=== PATIENT | female | born 1965 | race Caucasian/White ===

== ENCOUNTER 2023-01-26 10:30 | Inpatient (IN) | payer OTHER ==
[2023-02-02] MEDS ORDERED: MIDAZOLAM HCL 2 MG/2 ML SINGLE DOSE VIAL ONE ×6 (13:21→22:26)
[2023-02-02] MEDS ORDERED: DEXMEDETOMIDINE HCL 200 MCG/2 ML IVPB ONE (13:21)
[2023-02-02] MEDS ORDERED: FENTANYL CITRATE/PF 50 MCG/ML VIAL ONE (13:21)
[2023-02-02] MEDS ORDERED: BUPIVACAINE HCL/PF 2.5 MG/ML - 30 ML VIAL IJ ONE (13:22)
[2023-02-02] MEDS ORDERED: BUPIVACAINE HCL/PF 0.5% (5MG/ML) 10 ML VIAL ONE (13:22)
[2023-02-02] MEDS ORDERED: SODIUM CHLORIDE 0.9% P/F 10 ML VIAL IJ ONE (14:21)
[2023-02-02] MEDS ORDERED: PROPOFOL 20 ML ONE ×2 (14:32→14:59)
[2023-02-02] MEDS ORDERED: SUCCINYLCHOLINE CHLORIDE 200 MG/10 ML SYRINGE ONE (14:33)
[2023-02-02] MEDS ORDERED: PROPOFOL 40 ML ONE (15:00)
[2023-02-02] MEDS ORDERED: VANCOMYCIN 1,000 MG VIAL (RESTRICTED TO ID ONLY) ONE (15:22)
[2023-02-02] MEDS ORDERED: ONDANSETRON 4 MG/2 ML VIAL ONE (15:22)
[2023-02-02] MEDS ORDERED: ceFAZolin SODIUM 1 GM VIAL ONE (15:22)
[2023-02-02] MEDS ORDERED: TRANEXAMIC ACID 1000 MG/10 ML VIAL ONE (15:22)
[2023-02-02] MEDS ORDERED: GLYCOPYRROLATE 0.2 MG/1 ML VIAL ONE (15:22)
[2023-02-02] MEDS ORDERED: METOCLOPRAMIDE HCL INJECTION 10 MG/2 ML VIAL ONE (15:22)
[2023-02-02] MEDS ORDERED: oxyCODONE HCL 5 MG TABLET PO PRN ×2 (15:35)
[2023-02-02] MEDS ORDERED: ACETAMINOPHEN 1000 MG/100 ML BAG IVPB ONE (15:35)
[2023-02-02] MEDS ORDERED: ONDANSETRON 4 MG/2 ML VIAL IVPUSH PRN (15:35)
[2023-02-02] MEDS ORDERED: VASOPRESSIN 20 UNITS/ML VIAL IV ONE (16:54)
[2023-02-02] MEDS ORDERED: ETOMIDATE 20 MG/10 ML VIAL IVPUSH ONE (17:27)
[2023-02-02] MEDS ORDERED: ROCURONIUM BROMIDE 50 MG/5 ML SYRINGE ONE ×7 (17:33→23:15)
[2023-02-02 18:07] LABS: HEMATOCRIT 29.5 % (32.4-45.2); HEMOGLOBIN 9.6 G/dL (10.7-15.3); MCHC 32.4 g/dl (32.0-36.0); MEAN CELL VOLUME 92.5 fl (80-96); MEAN PLT VOLUME 7.9 fl (7.5-11.1); PLATELET COUNT 219.3 10^3/uL (134-434); RBC 3.19 10^6/uL (3.60-5.2); WHITE BLOOD COUNT 12.2 10^3/uL (4.0-10.8)
[2023-02-02] MEDS ORDERED: PHENYLEPHRINE HCL 10 MG/1 ML SINGLE DOSE VIAL ONE ×3 (18:23→18:26)
[2023-02-02] MEDS ORDERED: NOREPINEPHRINE BITARTRATE 4 MG/4 ML ML IV ONE (18:38)
[2023-02-02] MEDS ORDERED: CALCIUM CHLORIDE 1 GM/10 ML *DISP.SYRIN ONE ×2 (18:57→19:41)
[2023-02-02] MEDS ORDERED: ENOXAPARIN NA (PORCINE) 40 MG/0.4 ML DISP.SYRIN SQ SCH (19:45)
[2023-02-02] MEDS ORDERED: THROMBIN (BOVINE) 5,000 UNIT VIAL TP ONE (19:45)
[2023-02-02 20:03] LABS: ARTERIAL BLOOD GAS PO2 87.1 mmHg (80-100)
[2023-02-02 20:10] LABS: ARTERIAL BLOOD GAS pH < 6.717 (7.350-7.450)
[2023-02-02 20:29] LABS: HEMATOCRIT 34.7 % (32.4-45.2); HEMOGLOBIN 11.6 G/dL (10.7-15.3); INR 1.54 (0.83-1.09); MCH 30.8 pg (25.7-33.7); MCHC 33.3 g/dl (32.0-36.0); MEAN CELL VOLUME 92.4 fl (80-96); MEAN PLT VOLUME 8.5 fl (7.5-11.1); PROTHROMBIN TIME (PATIENT) 17.8 SEC (9.7-13.0); RBC 3.76 10^6/uL (3.60-5.2); WHITE BLOOD COUNT 16.2 10^3/uL (4.0-10.8)
[2023-02-02 20:40] LABS: ALBUMIN 1.7 g/dl (3.4-5.0); ALK PHOS 55 U/L (45-117); ANION GAP 3 MMOL/L (8-16); BILIRUBIN,TOTAL 0.4 mg/dl (0.2-1); BLOOD UREA NITROGEN 15.5 mg/dl (7-18); CALCIUM 16.2 mg/dl (8.5-10.1); CHLORIDE 113 mmol/L (98-107); CO2 19 mmol/L (21-32); CREATININE 0.8 mg/dl (0.6-1.3); GLUCOSE,RANDOM 225 mg/dl (74-106); SGOT/AST 37.9 U/L (15-37); SGPT/ALT 36.3 U/L (7-52); SODIUM 135 mmol/L (136-145); TOT PROT 2.7 g/dl (6.4-8.2)
[2023-02-02] MEDS ORDERED: ACETAMINOPHEN 500 MG TABLET (FP) PO SCH (22:00)
[2023-02-02] MEDS ORDERED: ENOXAPARIN NA (PORCINE) 30 MG/0.3 ML DISP.SYRIN SQ SCH (22:00)
[2023-02-02 22:04] LABS: ARTERIAL BLD GAS O2 SATURATION 99.9 % (95-98); ARTERIAL BLOOD GAS BASE EXCESS 0.3 mmol/L (-2-2); ARTERIAL BLOOD GAS PO2 482.4 mmHg (80-100); ARTERIAL BLOOD GAS pH 7.453 (7.350-7.450)
[2023-02-02 22:19] LABS: HEMATOCRIT 24.3 % (32.4-45.2); HEMOGLOBIN 8.2 G/dL (10.7-15.3); INR 1.29 (0.83-1.09); MCH 30.8 pg (25.7-33.7); MCHC 33.9 g/dl (32.0-36.0); MEAN PLT VOLUME 7.6 fl (7.5-11.1); PLATELET COUNT 149.9 10^3/uL (134-434); PROTHROMBIN TIME (PATIENT) 14.9 SEC (9.7-13.0); RBC 2.67 10^6/uL (3.60-5.2); RDW 14.3 % (11.6-15.6); WHITE BLOOD COUNT 10.9 10^3/uL (4.0-10.8)
[2023-02-02 22:22] LABS: ACTIVATED PTT 30.6 SECONDS (25.2-36.5)
[2023-02-02 22:31] LABS: ALBUMIN 2.7 g/dl (3.4-5.0); BILIRUBIN,TOTAL 0.9 mg/dl (0.2-1); BLOOD UREA NITROGEN 15.3 mg/dl (7-18); CALCIUM 10.3 mg/dl (8.5-10.1); CREATININE 0.8 mg/dl (0.6-1.3); POTASSIUM 4.1 mmol/L (3.5-5.1); SGOT/AST 41.5 U/L (15-37); SGPT/ALT 35.8 U/L (7-52); TOT PROT 3.9 g/dl (6.4-8.2)
[2023-02-03] MEDS ORDERED: FENTANYL CITRATE/PF 50 MCG/ML VIAL ONE (00:09)
[2023-02-03] MEDS ORDERED: ROCURONIUM BROMIDE 50 MG/5 ML SYRINGE ONE ×4 (00:17→13:07)
[2023-02-03] MEDS ORDERED: MAG HYDROX/AL HYDROX/SIMETH 30 ML UNIT-DOSE CUP PO PRN ×2 (00:30→02:21)
[2023-02-03] MEDS ORDERED: LACTATED RINGERS SOLUTION 1,000 ML IV SCH ×2 (00:30→02:21)
[2023-02-03] MEDS ORDERED: MAGNESIUM HYDROX 2400MG/30ML ORAL SUSPENSION 30 ML CUP PO PRN ×2 (00:30→02:21)
[2023-02-03] MEDS ORDERED: MUPIROCIN 2% TOPICAL OINTMENT FOR DECOLONIZATION NS SCH ×2 (00:30→10:00)
[2023-02-03] MEDS ORDERED: ONDANSETRON 4 MG/2 ML VIAL IVPUSH PRN ×2 (00:30→02:21)
[2023-02-03 01:37] LABS: ARTERIAL BLD GAS O2 SATURATION 99.3 % (95-98); ARTERIAL BLOOD GAS BASE EXCESS 1.2 mmol/L (-2-2); ARTERIAL BLOOD GAS PO2 175.8 mmHg (80-100); ARTERIAL BLOOD GAS pH 7.505 (7.350-7.450)
[2023-02-03 01:39] LABS: VENT MODE A/C; VENT RATE 16
[2023-02-03] MEDS: FENTANYL NS IVPB 500 MCG/100 ML BAG IVPB SCH ×2 (02:10→07:30)
[2023-02-03] MEDS ORDERED: oxyCODONE HCL 5 MG TABLET PO PRN ×2 (02:21)
[2023-02-03] MEDS ORDERED: ACETAMINOPHEN 1000 MG/100 ML BAG IVPB ONE (02:21)
[2023-02-03] MEDS: PROPOFOL 1,000,000 MCG/100 ML VIAL IVPB SCH ×5 (02:35→22:22)
[2023-02-03 02:37] LABS: POTASSIUM 4.8 mmol/L (3.5-5.1)
[2023-02-03 02:39] LABS: BLOOD UREA NITROGEN 15.6 mg/dL (7-18); CALCIUM 9.4 mg/dL (8.5-10.1)
[2023-02-03 02:40] LABS: ALBUMIN 2.8 g/dl (3.4-5.0); MAGNESIUM 1.7 mg/dL (1.8-2.4)
[2023-02-03 02:43] LABS: CREATININE 1.1 mg/dL (0.55-1.3); PHOSPHOROUS 5.4 mg/dL (2.5-4.9)
[2023-02-03 02:44] LABS: LACTIC ACID 3.8 mmol/L (0.4-2.0); TOT PROT 5.2 g/dl (6.4-8.2)
[2023-02-03 02:46] LABS: BILIRUBIN,TOTAL 2.2 mg/dL (0.2-1)
[2023-02-03] MEDS ORDERED: MAGNESIUM 1GM/D5W - 1 GM/100 ML IVPB IVPB ONE (02:51)
[2023-02-03 02:53] LABS: BASO % 0.3 % (0-2.0); EOS % 0.2 % (0-4.5); HEMATOCRIT 22.2 % (32.4-45.2); HEMOGLOBIN 7.8 GM/dL (10.7-15.3); LYMPH % 19.2 % (8-40); MCH 30.7 pg (25.7-33.7); MEAN CELL VOLUME 87.7 fl (80-96); MEAN PLT VOLUME 7.5 fl (7.5-11.1); MONO % 5.4 % (3.8-10.2); NEUT % 74.9 % (42.8-82.8); PLATELET COUNT 106 10^3/uL (134-434); RBC 2.54 M/mm3 (3.60-5.2); RDW 13.8 % (11.6-15.6); WHITE BLOOD COUNT 9.4 K/mm3 (4.0-10.0)
[2023-02-03] MEDS: CEFAZOLIN SODIUM 2 GM in DEXTROSE 5%-WATER 100 ML IVPB SCH ×4 (03:27→21:03)
[2023-02-03] MEDS: ACETAMINOPHEN 500 MG TABLET (FP) PO SCH ×4 (03:28→21:07)
[2023-02-03] MEDS ORDERED: CEFAZOLIN SODIUM 2 GM in DEXTROSE 5%-WATER 100 ML IVPB SCH (04:00)
[2023-02-03 07:40] LABS: BASO % 0.3 % (0-2.0); EOS % 0.3 % (0-4.5); HEMOGLOBIN 7.5 GM/dL (10.7-15.3); LYMPH % 20.3 % (8-40); MCHC 33.9 g/dl (32.0-36.0); MEAN CELL VOLUME 88.4 fl (80-96); MEAN PLT VOLUME 8.9 fl (7.5-11.1); MONO % 6.6 % (3.8-10.2); NEUT % 72.5 % (42.8-82.8); PLATELET COUNT 107 10^3/uL (134-434); RBC 2.49 M/mm3 (3.60-5.2); RDW 13.8 % (11.6-15.6); WHITE BLOOD COUNT 11.1 K/mm3 (4.0-10.0)
[2023-02-03 07:46] LABS: ACTIVATED PTT 29.1 SECONDS (25.2-36.5)
[2023-02-03 07:56] LABS: POTASSIUM 4.3 mmol/L (3.5-5.1)
[2023-02-03 07:58] LABS: CALCIUM 9.4 mg/dL (8.5-10.1)
[2023-02-03 07:59] LABS: ALBUMIN 2.8 g/dl (3.4-5.0); BLOOD UREA NITROGEN 17.5 mg/dL (7-18)
[2023-02-03 08:02] LABS: CREATININE 1.4 mg/dL (0.55-1.3)
[2023-02-03 08:04] LABS: BILIRUBIN,TOTAL 2.6 mg/dL (0.2-1); TOT PROT 5.2 g/dl (6.4-8.2)
[2023-02-03 08:21] LABS: INR 1.2 (0.83-1.09); PROTHROMBIN TIME (PATIENT) 13.9 SEC (9.7-13.0)
[2023-02-03] MEDS ORDERED: LIDOCAINE HCL 1%, 10 MG/ML (10ML VIAL) MDV ONE (08:39)
[2023-02-03] MEDS ORDERED: HEPARIN NA (PORCINE) 5,000 UNITS/ML 1ML VIAL ONE ×3 (08:39→13:36)
[2023-02-03] MEDS: SENNOSIDES/DOCUSATE COMBO (SENNA PLUS) TABLET (UD) PO SCH ×2 (09:29→21:07)
[2023-02-03] MEDS: PANTOPRAZOLE SODIUM 40 MG VIAL IVPUSH SCH (09:29)
[2023-02-03] MEDS: MUPIROCIN 2% TOPICAL OINTMENT FOR DECOLONIZATION NS SCH ×2 (09:29→21:03)
[2023-02-03] MEDS: MYCOPHENOLATE MOFETIL 500 MG TABLET PO SCH ×2 (09:29→21:06)
[2023-02-03] MEDS ORDERED: ROCURONIUM BROMIDE 50 MG/5 ML VIAL IV ONE (09:30)
[2023-02-03] MEDS ORDERED: HYDROmorphone HCl 2 MG/ML VIAL ONE ×2 (09:48→10:52)
[2023-02-03] MEDS ORDERED: MIDAZOLAM HCL 2 MG/2 ML SINGLE DOSE VIAL ONE ×2 (09:59→11:52)
[2023-02-03] MEDS ORDERED: SENNOSIDES/DOCUSATE COMBO (SENNA PLUS) TABLET (UD) PO SCH (10:00)
[2023-02-03] MEDS ORDERED: MYCOPHENOLATE MOFETIL 500 MG TABLET PO SCH (10:00)
[2023-02-03] MEDS ORDERED: PANTOPRAZOLE 40 MG TABLET PO SCH (10:00)
[2023-02-03] MEDS ORDERED: ENOXAPARIN NA (PORCINE) 30 MG/0.3 ML DISP.SYRIN SQ SCH ×2 (10:00)
[2023-02-03] MEDS ORDERED: EZETIMIBE 10 MG TABLET (FP) PO SCH ×2 (10:00)
[2023-02-03] MEDS ORDERED: DEXAMETHASONE SOD PHOSPHATE 4 MG/1 ML VIAL ONE (11:50)
[2023-02-03] MEDS ORDERED: ESMOLOL HCL 100,000 MCG/10 ML VIAL ONE (13:24)
[2023-02-03] MEDS ORDERED: POVIDONE-IODINE OINTMENT 10% - 28.4 GM TUBE TP ONE (13:30)
[2023-02-03] MEDS ORDERED: POVIDONE-IODINE OINTMENT 10% - 28.4 GM TUBE ONE (14:09)
[2023-02-03] MEDS ORDERED: HEPARIN NA (PORCINE) 5,000 UNITS/ML 1ML VIAL IVPUSH PRN ×2 (14:12)
[2023-02-03] MEDS ORDERED: HEPARIN - 25,000 UNIT in SODIUM CHLORIDE 495 ML IV SCH (14:15)
[2023-02-03] MEDS ORDERED: VASOPRESSIN 20 UNITS/ML VIAL IV ONE (15:47)
[2023-02-03] MEDS ORDERED: CEFAZOLIN SODIUM 2 GM VIAL ONE (15:50)
[2023-02-03] MEDS ORDERED: NOREPINEPHRINE BITARTRATE 4 MG/4 ML ML IV ONE (15:51)
[2023-02-03 16:38] LABS: HEMOGLOBIN 7.3 GM/dL (10.7-15.3); MCHC 34.7 g/dl (32.0-36.0); MEAN CELL VOLUME 86.5 fl (80-96); MEAN PLT VOLUME 8.7 fl (7.5-11.1); PLATELET COUNT 55 10^3/uL (134-434); RBC 2.43 M/mm3 (3.60-5.2); WHITE BLOOD COUNT 10.6 K/mm3 (4.0-10.0)
[2023-02-03] MEDS ORDERED: NOREPINEPHRINE 0.9 % NACL 8 MG/250 ML BAG IVPB SCH (17:30)
[2023-02-03] MEDS ORDERED: VASOPRESSIN 40 UNITS/100 ML BAG IV SCH (17:30)
[2023-02-03 17:49] LABS: ALBUMIN 1.2 g/dl (3.4-5.0); ALK PHOS 36 U/L (45-117); ANION GAP 6 MMOL/L (8-16); BILIRUBIN,TOTAL 2.6 mg/dL (0.2-1); BLOOD UREA NITROGEN 14.8 mg/dL (7-18); CHLORIDE 120 mmol/L (98-107); CO2 19 mmol/L (21-32); CREATININE 1.1 mg/dL (0.55-1.3); GLUCOSE,RANDOM 152 mg/dL (74-106); POTASSIUM 5.7 mmol/L (3.5-5.1); SGOT/AST 154 U/L (15-37); SGPT/ALT 51 U/L (13-61); SODIUM 146 mmol/L (136-145); TOT PROT 2.4 g/dl (6.4-8.2)
[2023-02-03] MEDS ORDERED: CALCIUM GLUCONATE 10% - 1,000 MG/10 ML VIAL IVPB ONE (19:43)
[2023-02-03 20:28] LABS: ARTERIAL BLD GAS O2 SATURATION 99.4 % (95-98); ARTERIAL BLOOD GAS BASE EXCESS -9.6 mmol/L (-2-2); ARTERIAL BLOOD GAS PO2 202.2 mmHg (80-100); ARTERIAL BLOOD GAS pH 7.393 (7.350-7.450)
[2023-02-03] MEDS: ROSUVASTATIN CA 20 MG TABLET PO SCH (21:07)
[2023-02-03] MEDS: CHLORHEXIDINE GLUCONATE 4% CLEANSER FOR DECOLONIZATION TP SCH (21:07)
[2023-02-03] MEDS: GABAPENTIN 300 MG CAPSULE PO SCH (21:07)
[2023-02-03 21:52] LABS: HEMOGLOBIN 12.1 GM/dL (10.7-15.3); MCH 29.9 pg (25.7-33.7); MCHC 34.4 g/dl (32.0-36.0); MEAN CELL VOLUME 86.7 fl (80-96); MEAN PLT VOLUME 8.5 fl (7.5-11.1); PLATELET COUNT 113 10^3/uL (134-434); RBC 4.04 M/mm3 (3.60-5.2); RDW 14.9 % (11.6-15.6); WHITE BLOOD COUNT 17.9 K/mm3 (4.0-10.0)
[2023-02-03] MEDS ORDERED: GABAPENTIN 300 MG CAPSULE PO SCH (22:00)
[2023-02-03] MEDS ORDERED: CHLORHEXIDINE GLUCONATE 4% CLEANSER FOR DECOLONIZATION TP SCH ×2 (22:00)
[2023-02-03] MEDS ORDERED: ROSUVASTATIN CA 20 MG TABLET PO SCH (22:00)
[2023-02-03 22:04] LABS: CHLORIDE 114 mmol/L (98-107); POTASSIUM 4.6 mmol/L (3.5-5.1); SODIUM 143 mmol/L (136-145)
[2023-02-03 22:07] LABS: ANION GAP 8 MMOL/L (8-16); BLOOD UREA NITROGEN 14.9 mg/dL (7-18); CO2 20 mmol/L (21-32); GLUCOSE,RANDOM 218 mg/dL (74-106); MAGNESIUM 1.9 mg/dL (1.8-2.4)
[2023-02-03 22:10] LABS: CREATININE 1.2 mg/dL (0.55-1.3); PHOSPHOROUS 4.7 mg/dL (2.5-4.9); SGOT/AST 461 U/L (15-37); SGPT/ALT 129 U/L (13-61)
[2023-02-03 22:11] LABS: TOT PROT 3.8 g/dl (6.4-8.2)
[2023-02-03 22:12] LABS: BILIRUBIN,TOTAL 2.9 mg/dL (0.2-1)
[2023-02-03 22:13] LABS: ALBUMIN 1.9 g/dl (3.4-5.0); ALK PHOS 55 U/L (45-117); CALCIUM 6.5 mg/dL (8.5-10.1)
[2023-02-03] MEDS ORDERED: CALCIUM GLUCONATE 10% - 1,000 MG/10 ML VIAL IVPUSH ONE (22:18)
[2023-02-03 22:39] LABS: ANISOCYTOSIS 1+; MACROCYTOSIS 0
[2023-02-04] MEDS: CEFAZOLIN SODIUM 2 GM in DEXTROSE 5%-WATER 100 ML IVPB SCH ×4 (03:01→21:06)
[2023-02-04] MEDS: ACETAMINOPHEN 500 MG TABLET (FP) PO SCH ×5 (03:02→21:25)
[2023-02-04 07:13] LABS: BASO % 0.2 % (0-2.0); EOS % 0.1 % (0-4.5); HEMATOCRIT 31.9 % (32.4-45.2); HEMOGLOBIN 11.3 GM/dL (10.7-15.3); LYMPH % 13.5 % (8-40); MCH 30.7 pg (25.7-33.7); MCHC 35.4 g/dl (32.0-36.0); MEAN CELL VOLUME 86.8 fl (80-96); MEAN PLT VOLUME 9.8 fl (7.5-11.1); MONO % 6.7 % (3.8-10.2); NEUT % 79.5 % (42.8-82.8); PLATELET COUNT 106 10^3/uL (134-434); RBC 3.68 M/mm3 (3.60-5.2); RDW 14.6 % (11.6-15.6); WHITE BLOOD COUNT 16.3 K/mm3 (4.0-10.0)
[2023-02-04 08:15] LABS: ALBUMIN 1.8 g/dl (3.4-5.0); ALK PHOS 64 U/L (45-117); ANION GAP 9 MMOL/L (8-16); BILIRUBIN,TOTAL 1.8 mg/dL (0.2-1); BLOOD UREA NITROGEN 16.7 mg/dL (7-18); CALCIUM 6.7 mg/dL (8.5-10.1); CHLORIDE 112 mmol/L (98-107); CO2 20 mmol/L (21-32); CREATININE 1.4 mg/dL (0.55-1.3); GLUCOSE,RANDOM 174 mg/dL (74-106); MAGNESIUM 2.1 mg/dL (1.8-2.4); PHOSPHOROUS 4.8 mg/dL (2.5-4.9); POTASSIUM 4.6 mmol/L (3.5-5.1); SGOT/AST 684 U/L (15-37); SGPT/ALT 162 U/L (13-61); SODIUM 141 mmol/L (136-145); TOT PROT 3.8 g/dl (6.4-8.2)
[2023-02-04] MEDS: FENTANYL NS IVPB 500 MCG/100 ML BAG IVPB SCH ×2 (09:05→15:30)
[2023-02-04] MEDS: PROPOFOL 1,000,000 MCG/100 ML VIAL IVPB SCH ×2 (09:05→15:30)
[2023-02-04] MEDS: MUPIROCIN 2% TOPICAL OINTMENT FOR DECOLONIZATION NS SCH ×2 (09:06→21:06)
[2023-02-04] MEDS: ENOXAPARIN NA (PORCINE) 100 MG/1 ML DISP.SYRIN SQ SCH ×3 (09:07→21:26)
[2023-02-04] MEDS: MYCOPHENOLATE MOFETIL 500 MG TABLET PO SCH ×2 (09:07→21:10)
[2023-02-04] MEDS: SENNOSIDES/DOCUSATE COMBO (SENNA PLUS) TABLET (UD) PO SCH ×3 (09:08→21:27)
[2023-02-04] MEDS: PANTOPRAZOLE SODIUM 40 MG VIAL IVPUSH SCH (09:08)
[2023-02-04] MEDS ORDERED: SILVER SULFADIAZINE 1% TOP CREAM 50 GM JAR TP SCH (10:00)
[2023-02-04] MEDS ORDERED: LABETALOL HCL 20 MG/4 ML VIAL IVPUSH ONE (16:57)
[2023-02-04] MEDS ORDERED: LABETALOL HCL 5 MG/1 ML (200MG/40ML VIAL) IVPB ONE (17:02)
[2023-02-04 20:19] LABS: BASO % 0.1 % (0-2.0); EOS % 0.3 % (0-4.5); HEMATOCRIT 31.1 % (32.4-45.2); HEMOGLOBIN 11.2 GM/dL (10.7-15.3); LYMPH % 12.9 % (8-40); MCH 31.2 pg (25.7-33.7); MCHC 36.1 g/dl (32.0-36.0); MEAN CELL VOLUME 86.5 fl (80-96); MEAN PLT VOLUME 9.5 fl (7.5-11.1); MONO % 7.8 % (3.8-10.2); NEUT % 78.9 % (42.8-82.8); PLATELET COUNT 109 10^3/uL (134-434); RDW 15.3 % (11.6-15.6); WHITE BLOOD COUNT 19.4 K/mm3 (4.0-10.0)
[2023-02-04] MEDS: GABAPENTIN 300 MG CAPSULE PO SCH ×2 (21:07→21:27)
[2023-02-04] MEDS: ROSUVASTATIN CA 20 MG TABLET PO SCH ×2 (21:08→21:26)
[2023-02-04] MEDS: CHLORHEXIDINE GLUCONATE 4% CLEANSER FOR DECOLONIZATION TP SCH (21:09)
[2023-02-04] MEDS ORDERED: HYDROmorphone HCl 2 MG/ML VIAL ONE (23:42)
[2023-02-04] MEDS ORDERED: MIDAZOLAM HCL 2 MG/2 ML SINGLE DOSE VIAL ONE (23:42)
[2023-02-05] MEDS: ACETAMINOPHEN 500 MG TABLET (FP) PO SCH ×4 (05:19→15:49)
[2023-02-05 07:18] LABS: HEMATOCRIT 25.7 % (32.4-45.2); HEMOGLOBIN 9.3 GM/dL (10.7-15.3); MCH 32.4 pg (25.7-33.7); MCHC 36.2 g/dl (32.0-36.0); MEAN CELL VOLUME 89.6 fl (80-96); MEAN PLT VOLUME 10.3 fl (7.5-11.1); PLATELET COUNT 124 10^3/uL (134-434); RBC 2.87 M/mm3 (3.60-5.2); RDW 15.2 % (11.6-15.6); WHITE BLOOD COUNT 21.7 K/mm3 (4.0-10.0)
[2023-02-05 07:35] LABS: CHLORIDE 109 mmol/L (98-107); SODIUM 138 mmol/L (136-145)
[2023-02-05 07:37] LABS: ALBUMIN 1.6 g/dl (3.4-5.0); CO2 19 mmol/L (21-32); GLUCOSE,RANDOM 160 mg/dL (74-106); MAGNESIUM 2.4 mg/dL (1.8-2.4)
[2023-02-05 07:41] LABS: CREATININE 2.9 mg/dL (0.55-1.3)
[2023-02-05 07:43] LABS: BILIRUBIN,TOTAL 2.5 mg/dL (0.2-1)
[2023-02-05 07:44] LABS: ALK PHOS 93 U/L (45-117)
[2023-02-05 07:45] LABS: ANION GAP 10 MMOL/L (8-16); BLOOD UREA NITROGEN 29.8 mg/dL (7-18); CALCIUM 5.8 mg/dL (8.5-10.1); POTASSIUM 6.5 mmol/L (3.5-5.1); SGOT/AST 854 U/L (15-37); TOT PROT 3.9 g/dl (6.4-8.2)
[2023-02-05] MEDS: FENTANYL NS IVPB 500 MCG/100 ML BAG IVPB SCH ×2 (08:00→10:05)
[2023-02-05 08:02] LABS: PHOSPHOROUS 9.1 mg/dL (2.5-4.9); SGPT/ALT 132 U/L (13-61)
[2023-02-05] MEDS: ENOXAPARIN NA (PORCINE) 100 MG/1 ML DISP.SYRIN SQ SCH ×2 (08:15→09:28)
[2023-02-05 08:47] LABS: CHLORIDE 114 mmol/L (98-107); SODIUM 140 mmol/L (136-145)
[2023-02-05 08:49] LABS: ALBUMIN 1.6 g/dl (3.4-5.0); CO2 18 mmol/L (21-32); GLUCOSE,RANDOM 159 mg/dL (74-106); MAGNESIUM 2.5 mg/dL (1.8-2.4)
[2023-02-05 08:54] LABS: BILIRUBIN,TOTAL 2.6 mg/dL (0.2-1)
[2023-02-05 08:56] LABS: ALK PHOS 99 U/L (45-117)
[2023-02-05 08:58] LABS: ANISOCYTOSIS 2+; MACROCYTOSIS 1+; TARGET CELLS 1+; TEAR DROP CELLS 2+
[2023-02-05 09:04] LABS: ANION GAP 8 MMOL/L (8-16); BLOOD UREA NITROGEN 30.3 mg/dL (7-18); CALCIUM 5.8 mg/dL (8.5-10.1); POTASSIUM 6.7 mmol/L (3.5-5.1); SGOT/AST 869 U/L (15-37)
[2023-02-05] MEDS ORDERED: ALBUMIN HUMAN 25% 100 ML VIAL IV SCH ×2 (09:15→09:30)
[2023-02-05 09:22] LABS: ARTERIAL BLD GAS O2 SATURATION 96.5 % (95-98); ARTERIAL BLOOD GAS PO2 100.5 mmHg (80-100); ARTERIAL BLOOD GAS pH 7.226 (7.350-7.450)
[2023-02-05 09:25] LABS: ALLENS TEST POSITIVE
[2023-02-05 09:26] LABS: VENT MODE A/C; VENT RATE 50
[2023-02-05] MEDS: SODIUM ZIRCONIUM CYCLOSILICATE (LOKELMA) 5 GM PACKET PO SCH (09:28)
[2023-02-05] MEDS ORDERED: CALCIUM GLUCONATE IN NACL 1 GM/50 ML BAG IVPB ONE (09:30)
[2023-02-05] MEDS ORDERED: SODIUM BICARBONATE 8.4% 50 MEQ/50 ML DISP.SYRIN IVPUSH ONE (09:30)
[2023-02-05] MEDS ORDERED: INSULIN REGULAR HUMAN 100 UNITS/ML *VIAL IVPUSH ONE (09:30)
[2023-02-05] MEDS ORDERED: DEXTROSE 50%-WATER 25 GM/50 ML DISP.SYRIN IVPUSH ONE (09:30)
[2023-02-05 09:32] LABS: PHOSPHOROUS 9.4 mg/dL (2.5-4.9)
[2023-02-05] MEDS ORDERED: SODIUM CHLORIDE 250 ML IV PRN (09:47)
[2023-02-05] MEDS ORDERED: CEFAZOLIN 1 GM in DEXTROSE 5%-WATER - 50 ML IVPB SCH (10:00)
[2023-02-05] MEDS: PROPOFOL 1,000,000 MCG/100 ML VIAL IVPB SCH (10:06)
[2023-02-05] MEDS: MUPIROCIN 2% TOPICAL OINTMENT FOR DECOLONIZATION NS SCH ×2 (10:09→21:42)
[2023-02-05] MEDS: MYCOPHENOLATE MOFETIL 500 MG TABLET PO SCH ×2 (10:10→10:42)
[2023-02-05] MEDS: SENNOSIDES/DOCUSATE COMBO (SENNA PLUS) TABLET (UD) PO SCH ×2 (10:11→10:42)
[2023-02-05] MEDS: PANTOPRAZOLE SODIUM 40 MG VIAL IVPUSH SCH (10:13)
[2023-02-05] MEDS ORDERED: DEXTROSE 50%-WATER 25 GM/50 ML DISP.SYRIN ONE (10:21)
[2023-02-05] MEDS ORDERED: DEXTROSE 50%-WATER - 25 GM/50 ML VIAL IVPUSH ONE (11:00)
[2023-02-05 13:02] LABS: BASO % 0.2 % (0-2.0); EOS % 0.8 % (0-4.5); HEMATOCRIT 18.3 % (32.4-45.2); LYMPH % 18.7 % (8-40); MCHC 38.5 g/dl (32.0-36.0); MEAN CELL VOLUME 88.3 fl (80-96); MONO % 8.4 % (3.8-10.2); NEUT % 71.9 % (42.8-82.8); RBC 2.07 M/mm3 (3.60-5.2); RDW 15.3 % (11.6-15.6); WHITE BLOOD COUNT 15.9 K/mm3 (4.0-10.0)
[2023-02-05 13:27] LABS: CHLORIDE 108 mmol/L (98-107); POTASSIUM 4.3 mmol/L (3.5-5.1); SODIUM 141 mmol/L (136-145)
[2023-02-05 13:29] LABS: ANION GAP 7 MMOL/L (8-16); CO2 26 mmol/L (21-32); GLUCOSE,RANDOM 190 mg/dL (74-106)
[2023-02-05 13:32] LABS: CREATININE 2.5 mg/dL (0.55-1.3)
[2023-02-05 13:34] LABS: BILIRUBIN,TOTAL 2.4 mg/dL (0.2-1)
[2023-02-05 13:35] LABS: ALK PHOS 81 U/L (45-117)
[2023-02-05 13:36] LABS: ANISOCYTOSIS 2+; MACROCYTOSIS 0; OVALOCYTE 1+; TEAR DROP CELLS 1+
[2023-02-05 13:37] LABS: MEAN PLT VOLUME 9.5 fl (7.5-11.1); PLATELET COUNT 95 10^3/uL (134-434)
[2023-02-05 14:11] LABS: ALBUMIN 1.9 g/dl (3.4-5.0); BLOOD UREA NITROGEN 24.1 mg/dL (7-18); CALCIUM 5.8 mg/dL (8.5-10.1); SGOT/AST 698 U/L (15-37); TOT PROT 3.9 g/dl (6.4-8.2)
[2023-02-05] MEDS ORDERED: SODIUM CHLORIDE 1,000 ML IV SCH (16:15)
[2023-02-05] MEDS: MYCOPHENOLATE MOFETIL 200 MG/ML SUSPENSION NGT SCH (18:05)
[2023-02-05 18:59] LABS: BASO % 0.6 % (0-2.0); EOS % 0.9 % (0-4.5); HEMATOCRIT 25.5 % (32.4-45.2); HEMOGLOBIN 9.5 GM/dL (10.7-15.3); LYMPH % 17.1 % (8-40); MCH 32.5 pg (25.7-33.7); MCHC 37.4 g/dl (32.0-36.0); MEAN CELL VOLUME 86.8 fl (80-96); MEAN PLT VOLUME 9.2 fl (7.5-11.1); MONO % 8.2 % (3.8-10.2); NEUT % 73.2 % (42.8-82.8); PLATELET COUNT 88 10^3/uL (134-434); RBC 2.94 M/mm3 (3.60-5.2); RDW 15.7 % (11.6-15.6)
[2023-02-05 19:18] LABS: CHLORIDE 108 mmol/L (98-107); POTASSIUM 4.2 mmol/L (3.5-5.1); SODIUM 142 mmol/L (136-145)
[2023-02-05 19:20] LABS: ALBUMIN 1.9 g/dl (3.4-5.0)
[2023-02-05 19:21] LABS: ANION GAP 7 MMOL/L (8-16); CO2 26 mmol/L (21-32); GLUCOSE,RANDOM 147 mg/dL (74-106)
[2023-02-05 19:23] LABS: CREATININE 2.2 mg/dL (0.55-1.3)
[2023-02-05 19:25] LABS: BILIRUBIN,TOTAL 3.1 mg/dL (0.2-1)
[2023-02-05 19:27] LABS: ALK PHOS 84 U/L (45-117)
[2023-02-05] MEDS ORDERED: HEPARIN NA (PORCINE) 5,000 UNITS/ML 1ML VIAL IVPUSH PRN ×2 (19:36→20:49)
[2023-02-05] MEDS ORDERED: FUROSEMIDE 40 MG/4 ML INJECTABLE VIAL IVPUSH ONE (19:46)
[2023-02-05 19:59] LABS: INR 1.14 (0.83-1.09); PROTHROMBIN TIME (PATIENT) 13.2 SEC (9.7-13.0)
[2023-02-05 20:14] LABS: BLOOD UREA NITROGEN 19.9 mg/dL (7-18); CALCIUM 6.5 mg/dL (8.5-10.1); SGOT/AST 847 U/L (15-37); SGPT/ALT 112 U/L (13-61); TOT PROT 3.9 g/dl (6.4-8.2)
[2023-02-05] MEDS ORDERED: CALCIUM GLUCONATE 10% - 1,000 MG/10 ML VIAL IVPB ONE (20:20)
[2023-02-05 20:44] LABS: ANISOCYTOSIS 2+; MACROCYTOSIS 0; TARGET CELLS 1+; TEAR DROP CELLS 1+
[2023-02-05] MEDS: HEPARIN - 25,000 UNIT in SODIUM CHLORIDE 495 ML IV SCH (20:50)
[2023-02-05] MEDS: GABAPENTIN 300 MG CAPSULE PO SCH (21:42)
[2023-02-05] MEDS: CHLORHEXIDINE GLUCONATE 4% CLEANSER FOR DECOLONIZATION TP SCH (21:42)
[2023-02-05] MEDS: SENNOSIDES 8.8 MG/5 ML SYRUP PO SCH (21:42)
[2023-02-05] MEDS: ROSUVASTATIN CA 20 MG TABLET PO SCH (21:42)
[2023-02-05 22:09] LABS: HEMATOCRIT 19.7 % (32.4-45.2); HEMOGLOBIN 7.2 GM/dL (10.7-15.3); MCH 31.7 pg (25.7-33.7); MCHC 36.6 g/dl (32.0-36.0); MEAN CELL VOLUME 86.6 fl (80-96); MEAN PLT VOLUME 9.4 fl (7.5-11.1); PLATELET COUNT 80 10^3/uL (134-434); RBC 2.28 M/mm3 (3.60-5.2); RDW 15.5 % (11.6-15.6); WHITE BLOOD COUNT 14.2 K/mm3 (4.0-10.0)
[2023-02-06] MEDS ORDERED: CALCIUM GLUC IN NACL, ISO-OSM 1 GM/50 ML BAG IVPB ONE (00:50)
[2023-02-06] MEDS: NOREPINEPHRINE BITARTRATE/D5W 8 MG/250 ML BAG IVPB SCH ×2 (01:01→09:59)
[2023-02-06 02:25] LABS: HEMATOCRIT 26.5 % (32.4-45.2); HEMOGLOBIN 9.2 GM/dL (10.7-15.3); MCH 30.5 pg (25.7-33.7); MCHC 34.7 g/dl (32.0-36.0); MEAN CELL VOLUME 87.9 fl (80-96); MEAN PLT VOLUME 9.4 fl (7.5-11.1); PLATELET COUNT 66 10^3/uL (134-434); RBC 3.02 M/mm3 (3.60-5.2); RDW 14.3 % (11.6-15.6)
[2023-02-06 02:53] LABS: WHITE BLOOD COUNT 17.6 K/mm3 (4.0-10.0)
[2023-02-06] MEDS: PROPOFOL 1,000,000 MCG/100 ML VIAL IVPB SCH ×2 (03:29→09:54)
[2023-02-06 06:41] LABS: ARTERIAL BLD GAS O2 SATURATION 99.1 % (95-98); ARTERIAL BLOOD GAS BASE EXCESS -8.4 mmol/L (-2-2); ARTERIAL BLOOD GAS pH 7.348 (7.350-7.450)
[2023-02-06 06:47] LABS: VENT MODE A/C; VENT RATE 20
[2023-02-06 07:16] LABS: INR 1.36 (0.83-1.09); PROTHROMBIN TIME (PATIENT) 15.7 SEC (9.7-13.0)
[2023-02-06 07:28] LABS: CHLORIDE 112 mmol/L (98-107); POTASSIUM 5.2 mmol/L (3.5-5.1); SODIUM 143 mmol/L (136-145)
[2023-02-06 07:30] LABS: ANION GAP 10 MMOL/L (8-16); BLOOD UREA NITROGEN 27.2 mg/dL (7-18); CO2 21 mmol/L (21-32)
[2023-02-06 07:31] LABS: GLUCOSE,RANDOM 141 mg/dL (74-106); MAGNESIUM 1.9 mg/dL (1.8-2.4)
[2023-02-06 07:33] LABS: PHOSPHOROUS 8.6 mg/dL (2.5-4.9); SGPT/ALT 65 U/L (13-61)
[2023-02-06 07:34] LABS: LDH 610 U/L (84-246); SGOT/AST 586 U/L (15-37)
[2023-02-06 07:35] LABS: TOT PROT 3.1 g/dl (6.4-8.2)
[2023-02-06 07:36] LABS: ALK PHOS 65 U/L (45-117)
[2023-02-06 07:41] LABS: ALBUMIN 1.2 g/dl (3.4-5.0); CALCIUM 6.1 mg/dL (8.5-10.1)
[2023-02-06 07:57] LABS: HEMATOCRIT 25.6 % (32.4-45.2); HEMOGLOBIN 9.1 GM/dL (10.7-15.3); MCH 30.7 pg (25.7-33.7); MCHC 35.4 g/dl (32.0-36.0); MEAN CELL VOLUME 86.7 fl (80-96); MEAN PLT VOLUME 10.9 fl (7.5-11.1); PLATELET COUNT 65 10^3/uL (134-434); RBC 2.95 M/mm3 (3.60-5.2); RDW 14.1 % (11.6-15.6)
[2023-02-06 09:03] LABS: ANISOCYTOSIS 0; MACROCYTOSIS 0
[2023-02-06] MEDS: TRANEXAMIC ACID 1000 MG/10 ML VIAL IVPUSH ONE ×2 (09:55→18:15)
[2023-02-06] MEDS: FENTANYL NS IVPB 500 MCG/100 ML BAG IVPB SCH ×2 (09:55)
[2023-02-06] MEDS: MUPIROCIN 2% TOPICAL OINTMENT FOR DECOLONIZATION NS SCH ×2 (09:56→22:32)
[2023-02-06] MEDS: MYCOPHENOLATE MOFETIL 200 MG/ML SUSPENSION NGT SCH (09:56)
[2023-02-06] MEDS: SODIUM ZIRCONIUM CYCLOSILICATE (LOKELMA) 5 GM PACKET PO SCH (09:57)
[2023-02-06] MEDS: PANTOPRAZOLE SODIUM 40 MG VIAL IVPUSH SCH (09:59)
[2023-02-06] MEDS ORDERED: VANCOMYCIN PREMIX 1.5 GM 1,500 MG/300 ML BAG IVPB ONE (10:00)
[2023-02-06] MEDS ORDERED: PIPERACILLIN/TAZOB 3.375 GM 3.375 GM in DEXTROSE 5%-WATER - 50 ML IVPB SCH (10:00)
[2023-02-06] MEDS ORDERED: PIPERACILLIN/TAZOB 2.25 GM 2.25 GM in DEXTROSE 5%-WATER - 50 ML IVPB SCH (10:15)
[2023-02-06] MEDS ORDERED: SODIUM CHLORIDE 1,000 ML IV STA ×2 (10:41→13:30)
[2023-02-06] MEDS ORDERED: INSULIN REGULAR HUMAN 100 UNITS/ML *VIAL ONE (12:24)
[2023-02-06 13:06] LABS: HEMATOCRIT 23.3 % (32.4-45.2); HEMOGLOBIN 7.7 GM/dL (10.7-15.3); MCH 29.3 pg (25.7-33.7); MCHC 32.9 g/dl (32.0-36.0); MEAN PLT VOLUME 9.9 fl (7.5-11.1); PLATELET COUNT 85 10^3/uL (134-434); RBC 2.62 M/mm3 (3.60-5.2); RDW 13.9 % (11.6-15.6)
[2023-02-06] MEDS ORDERED: VASOPRESSIN 20 UNITS/ML VIAL IV ONE (13:07)
[2023-02-06 13:15] LABS: WHITE BLOOD COUNT 36.6 K/mm3 (4.0-10.0)
[2023-02-06] MEDS ORDERED: VASOPRESSIN 40 UNITS/100 ML BAG IV SCH (13:15)
[2023-02-06 13:17] LABS: CHLORIDE 112 mmol/L (98-107); SODIUM 140 mmol/L (136-145)
[2023-02-06 13:20] LABS: GLUCOSE,RANDOM 161 mg/dL (74-106)
[2023-02-06 13:21] LABS: BLOOD UREA NITROGEN 28.8 mg/dL (7-18); CO2 18 mmol/L (21-32)
[2023-02-06 13:24] LABS: CREATININE 3.5 mg/dL (0.55-1.3); SGOT/AST 549 U/L (15-37); SGPT/ALT 65 U/L (13-61)
[2023-02-06 13:25] LABS: BILIRUBIN,TOTAL 1.3 mg/dL (0.2-1); TOT PROT 2.3 g/dl (6.4-8.2)
[2023-02-06 13:26] LABS: ALK PHOS 67 U/L (45-117)
[2023-02-06 13:30] LABS: ALBUMIN 0.9 g/dl (3.4-5.0); ANION GAP 10 MMOL/L (8-16); CALCIUM 5.8 mg/dL (8.5-10.1); POTASSIUM 6.9 mmol/L (3.5-5.1)
[2023-02-06] MEDS ORDERED: CALCIUM GLUCONATE 10% - 1,000 MG/10 ML VIAL IVPB ONE ×2 (14:00→17:51)
[2023-02-06] MEDS ORDERED: INSULIN REGULAR HUMAN 100 UNITS/ML *VIAL IVPUSH ONE (14:05)
[2023-02-06] MEDS ORDERED: DEXTROSE 50%-WATER - 25 GM/50 ML VIAL IVPUSH ONE (14:10)
[2023-02-06] MEDS ORDERED: SODIUM CHLORIDE 250 ML IV PRN (14:24)
[2023-02-06] MEDS ORDERED: DEXTROSE 50%-WATER 25 GM/50 ML DISP.SYRIN ONE (15:43)
[2023-02-06 17:38] LABS: HEMATOCRIT 17.2 % (32.4-45.2); MCH 30.4 pg (25.7-33.7); MEAN PLT VOLUME 7.4 fl (7.5-11.1); PLATELET COUNT 112 10^3/uL (134-434); RBC 1.98 M/mm3 (3.60-5.2); RDW 13.4 % (11.6-15.6); WHITE BLOOD COUNT 14.8 K/mm3 (4.0-10.0)
[2023-02-06 18:26] LABS: INR 1.12 (0.83-1.09)
[2023-02-06] MEDS: PIPERACILLIN/TAZOB 2.25 GM 2.25 GM in DEXTROSE 5%-WATER - 50 ML IVPB SCH (19:04)
[2023-02-06] MEDS: HEPARIN - 25,000 UNIT in SODIUM CHLORIDE 495 ML IV SCH (20:00)
[2023-02-06 20:31] VITALS: RESP 20
[2023-02-06] MEDS: SENNOSIDES 8.8 MG/5 ML SYRUP PO SCH (22:31)
[2023-02-06] MEDS: CHLORHEXIDINE GLUCONATE 4% CLEANSER FOR DECOLONIZATION TP SCH (22:32)
[2023-02-06] MEDS: GABAPENTIN 300 MG CAPSULE PO SCH (22:32)
[2023-02-06] MEDS: ROSUVASTATIN CA 20 MG TABLET PO SCH (22:32)
[2023-02-06 23:58] LABS: HEMATOCRIT 26.6 % (32.4-45.2); HEMOGLOBIN 9.4 GM/dL (10.7-15.3); MCH 30.9 pg (25.7-33.7); MCHC 35.4 g/dl (32.0-36.0); MEAN CELL VOLUME 87.3 fl (80-96); MEAN PLT VOLUME 8.2 fl (7.5-11.1); PLATELET COUNT 83 10^3/uL (134-434); RBC 3.04 M/mm3 (3.60-5.2); RDW 13.2 % (11.6-15.6); WHITE BLOOD COUNT 12.9 K/mm3 (4.0-10.0)
[2023-02-07 00:35] LABS: INR 1.16 (0.83-1.09); PROTHROMBIN TIME (PATIENT) 13.4 SEC (9.7-13.0)
[2023-02-07 00:38] LABS: ACTIVATED PTT 42.6 SECONDS (25.2-36.5)
[2023-02-07 01:13] LABS: CHLORIDE 110 mmol/L (98-107); POTASSIUM 4.5 mmol/L (3.5-5.1); SODIUM 144 mmol/L (136-145)
[2023-02-07 01:15] LABS: ANION GAP 9 MMOL/L (8-16); BLOOD UREA NITROGEN 19.8 mg/dL (7-18); CO2 25 mmol/L (21-32); GLUCOSE,RANDOM 125 mg/dL (74-106)
[2023-02-07 01:18] LABS: SGPT/ALT 146 U/L (13-61)
[2023-02-07 01:19] LABS: BILIRUBIN,TOTAL 2.4 mg/dL (0.2-1); CREATININE 2.4 mg/dL (0.55-1.3); SGOT/AST 924 U/L (15-37); TOT PROT 3.9 g/dl (6.4-8.2)
[2023-02-07 01:21] LABS: ALK PHOS 75 U/L (45-117)
[2023-02-07 01:39] LABS: CALCIUM 6.5 mg/dL (8.5-10.1)
[2023-02-07] MEDS: PIPERACILLIN/TAZOB 2.25 GM 2.25 GM in DEXTROSE 5%-WATER - 50 ML IVPB SCH ×4 (03:00→21:15)
[2023-02-07] MEDS: NOREPINEPHRINE BITARTRATE/D5W 8 MG/250 ML BAG IVPB SCH (03:55)
[2023-02-07] MEDS: FENTANYL NS IVPB 500 MCG/100 ML BAG IVPB SCH (03:58)
[2023-02-07] MEDS: PROPOFOL 1,000,000 MCG/100 ML VIAL IVPB SCH ×2 (04:02→22:44)
[2023-02-07 06:13] LABS: ARTERIAL BLD GAS O2 SATURATION 97.5 % (95-98); ARTERIAL BLOOD GAS BASE EXCESS -1.9 mmol/L (-2-2); ARTERIAL BLOOD GAS PO2 97.2 mmHg (80-100); ARTERIAL BLOOD GAS pH 7.413 (7.350-7.450)
[2023-02-07 06:30] LABS: VENT MODE VENT; VENT RATE 20
[2023-02-07] MEDS ORDERED: HEPARIN - 25,000 UNIT in SODIUM CHLORIDE 495 ML IV SCH (06:37)
[2023-02-07 07:28] LABS: HEMATOCRIT 25.2 % (32.4-45.2); HEMOGLOBIN 8.9 GM/dL (10.7-15.3); MCH 30.5 pg (25.7-33.7); MCHC 35.6 g/dl (32.0-36.0); MEAN CELL VOLUME 85.7 fl (80-96); MEAN PLT VOLUME 8.4 fl (7.5-11.1); PLATELET COUNT 84 10^3/uL (134-434); RBC 2.94 M/mm3 (3.60-5.2); RDW 13.5 % (11.6-15.6); RETICULOCYTES 1.28 % (0.5-1.5); WHITE BLOOD COUNT 13.2 K/mm3 (4.0-10.0)
[2023-02-07 08:03] LABS: ALBUMIN 1.8 g/dl (3.4-5.0)
[2023-02-07 08:06] LABS: BILIRUBIN,DIRECT 2.2 mg/dL (0.0-0.2); SGOT/AST 907 U/L (15-37); SGPT/ALT 119 U/L (13-61)
[2023-02-07 08:08] LABS: BILIRUBIN,TOTAL 2.5 mg/dL (0.2-1); LDH 851 U/L (84-246); TOT PROT 3.8 g/dl (6.4-8.2)
[2023-02-07 08:10] LABS: ALK PHOS 85 U/L (45-117)
[2023-02-07 08:19] LABS: CHLORIDE 108 mmol/L (98-107); POTASSIUM 4.5 mmol/L (3.5-5.1); SODIUM 142 mmol/L (136-145)
[2023-02-07 08:23] LABS: ALBUMIN 1.8 g/dl (3.4-5.0); ANION GAP 9 MMOL/L (8-16); BLOOD UREA NITROGEN 22.9 mg/dL (7-18); CO2 24 mmol/L (21-32); GLUCOSE,RANDOM 122 mg/dL (74-106); MAGNESIUM 1.9 mg/dL (1.8-2.4)
[2023-02-07 08:25] LABS: PHOSPHOROUS 6.3 mg/dL (2.5-4.9); SGPT/ALT 122 U/L (13-61)
[2023-02-07 08:27] LABS: BILIRUBIN,TOTAL 2.4 mg/dL (0.2-1); SGOT/AST 906 U/L (15-37); TOT PROT 3.8 g/dl (6.4-8.2)
[2023-02-07 08:28] LABS: ALK PHOS 83 U/L (45-117)
[2023-02-07 08:32] LABS: CALCIUM 6.2 mg/dL (8.5-10.1)
[2023-02-07 09:11] LABS: ANISOCYTOSIS 0; HELMET CELLS 0; HOWELL-JOLLY BODIES 0; MACROCYTOSIS 0; OVALOCYTE 0; ROULEAU 0; SICKELED CELLS 0; TARGET CELLS 0; TEAR DROP CELLS 0; TOXIC GRANULATION 0
[2023-02-07] MEDS ORDERED: HEPARIN NA (PORCINE) 5,000 UNITS/ML 1ML VIAL IVPUSH PRN ×2 (09:15)
[2023-02-07] MEDS: PANTOPRAZOLE SODIUM 40 MG VIAL IVPUSH SCH (10:08)
[2023-02-07] MEDS: MYCOPHENOLATE MOFETIL 200 MG/ML SUSPENSION NGT SCH (10:09)
[2023-02-07] MEDS: MUPIROCIN 2% TOPICAL OINTMENT FOR DECOLONIZATION NS SCH ×2 (10:29→22:17)
[2023-02-07] MEDS ORDERED: PIPERACILLIN/TAZOB 2.25 GM 2.25 GM in DEXTROSE 5%-WATER - 50 ML IVPB SCH (15:00)
[2023-02-07 16:28] VITALS: BMI 43.4
[2023-02-07 21:45] LABS: HEMATOCRIT 24.7 % (32.4-45.2); HEMOGLOBIN 8.5 GM/dL (10.7-15.3); MCH 30.5 pg (25.7-33.7); MCHC 34.5 g/dl (32.0-36.0); MEAN CELL VOLUME 88.4 fl (80-96); MEAN PLT VOLUME 9.1 fl (7.5-11.1); PLATELET COUNT 90 10^3/uL (134-434); RBC 2.79 M/mm3 (3.60-5.2); RDW 13.4 % (11.6-15.6); WHITE BLOOD COUNT 14.9 K/mm3 (4.0-10.0)
[2023-02-07 21:51] LABS: INR 1.03 (0.83-1.09)
[2023-02-07 21:53] LABS: ACTIVATED PTT 37.8 SECONDS (25.2-36.5)
[2023-02-07] MEDS: GABAPENTIN 300 MG CAPSULE PO SCH (22:17)
[2023-02-07] MEDS: CHLORHEXIDINE GLUCONATE 4% CLEANSER FOR DECOLONIZATION TP SCH (22:17)
[2023-02-07] MEDS: ROSUVASTATIN CA 20 MG TABLET PO SCH (22:17)
[2023-02-07] MEDS: SENNOSIDES 8.8 MG/5 ML SYRUP PO SCH (22:17)
[2023-02-08] MEDS: NOREPINEPHRINE BITARTRATE/D5W 8 MG/250 ML BAG IVPB SCH (01:00)
[2023-02-08] MEDS: PIPERACILLIN/TAZOB 2.25 GM 2.25 GM in DEXTROSE 5%-WATER - 50 ML IVPB SCH ×2 (02:57→11:22)
[2023-02-08] MEDS: FENTANYL NS IVPB 500 MCG/100 ML BAG IVPB SCH (02:58)
[2023-02-08] MEDS: PROPOFOL 1,000,000 MCG/100 ML VIAL IVPB SCH (04:02)
[2023-02-08 07:43] LABS: CHLORIDE 107 mmol/L (98-107); POTASSIUM 4.6 mmol/L (3.5-5.1); SODIUM 141 mmol/L (136-145)
[2023-02-08 07:48] LABS: ALBUMIN 1.4 g/dl (3.4-5.0); ANION GAP 11 MMOL/L (8-16); BLOOD UREA NITROGEN 37.4 mg/dL (7-18); CO2 23 mmol/L (21-32); GLUCOSE,RANDOM 95 mg/dL (74-106); MAGNESIUM 2.1 mg/dL (1.8-2.4)
[2023-02-08 07:51] LABS: CREATININE 4.4 mg/dL (0.55-1.3); PHOSPHOROUS 8.2 mg/dL (2.5-4.9); SGPT/ALT 115 U/L (13-61)
[2023-02-08 07:52] LABS: BILIRUBIN,TOTAL 2.7 mg/dL (0.2-1); TOT PROT 3.7 g/dl (6.4-8.2)
[2023-02-08 08:06] LABS: HEMATOCRIT 21.5 % (32.4-45.2); HEMOGLOBIN 7.5 GM/dL (10.7-15.3); MCH 30.8 pg (25.7-33.7); MCHC 34.8 g/dl (32.0-36.0); MEAN CELL VOLUME 88.5 fl (80-96); MEAN PLT VOLUME 8.6 fl (7.5-11.1); PLATELET COUNT 84 10^3/uL (134-434); RBC 2.42 M/mm3 (3.60-5.2); RDW 13.9 % (11.6-15.6); WHITE BLOOD COUNT 13.9 K/mm3 (4.0-10.0)
[2023-02-08 08:08] LABS: ALK PHOS 115 U/L (45-117); CALCIUM 5.8 mg/dL (8.5-10.1); SGOT/AST 1028 U/L (15-37)
[2023-02-08] MEDS ORDERED: FENTANYL CITRATE/PF 50 MCG/ML VIAL IVPUSH ONE (08:30)
[2023-02-08 09:03] LABS: ANISOCYTOSIS 0; MACROCYTOSIS 0
[2023-02-08 09:52] VITALS: BP 117/63; PULSE 89; TEMP 96.7
[2023-02-16 15:08] LABS: APTT 35.4 sec (.); B2-GLYCOPROTEIN IGA <10 SAU (.); B2-GLYCOPROTEIN IGG <10 SGU (.); B2-GLYCOPROTEIN IGM <10 SMU (.); CARDIOLIPIN AB IGA <10 APL (.); HEXAGONAL PHOSPHOLIPID NEUTRAL 9 sec (.)
== END 2023-02-08 09:00 | disposition short-term general hospital (02) | DRG 466 ==
LOC: EDSTATUS 10:30 → FM/S 02-02 10:41 → JICU 02-03 01:30
PROVIDERS: ADMIT Orthopaedic Surgery Orthopaedic Surgery of the Spine; ATTEND Orthopaedic Surgery Orthopaedic Surgery of the Spine
PROC: 0SP90JZ Removal of Synthetic Substitute from Right Hip Joint, Open Approach (ICD-10-PCS; 2023-02-02)
PROC: 5A1955Z Respiratory Ventilation, Greater than 96 Consecutive Hours (ICD-10-PCS; 2023-02-02)
PROC: 0BH17EZ Insertion of Endotracheal Airway into Trachea, Via Natural or Artificial Opening (ICD-10-PCS; 2023-02-02)
PROC: 0SR90JA Replacement of Right Hip Joint with Synthetic Substitute, Uncemented, Open Approach (ICD-10-PCS; principal; 2023-02-02 15:22)
PROC: 04CK0ZZ Extirpation of Matter from Right Femoral Artery, Open Approach (ICD-10-PCS; 2023-02-03)
PROC: 3E05317 Introduction of Other Thrombolytic into Peripheral Artery, Percutaneous Approach (ICD-10-PCS; 2023-02-03)
PROC: 4A133B1 Monitoring of Arterial Pressure, Peripheral, Percutaneous Approach (ICD-10-PCS; 2023-02-03)
PROC: 4A133J1 Monitoring of Arterial Pulse, Peripheral, Percutaneous Approach (ICD-10-PCS; 2023-02-03)
PROC: 05HM33Z Insertion of Infusion Device into Right Internal Jugular Vein, Percutaneous Approach (ICD-10-PCS; 2023-02-03)
PROC: B543ZZA Ultrasonography of Right Jugular Veins, Guidance (ICD-10-PCS; 2023-02-03)
PROC: 04CH0ZZ Extirpation of Matter from Right External Iliac Artery, Open Approach (ICD-10-PCS; 2023-02-03 09:00)
PROC: 0KN70ZZ Release Right Upper Arm Muscle, Open Approach (ICD-10-PCS; 2023-02-04)
PROC: 0J8 Subcutaneous Tissue and Fascia, Division (ICD-10-PCS; 2023-02-04)
PROC: 05HN33Z Insertion of Infusion Device into Left Internal Jugular Vein, Percutaneous Approach (ICD-10-PCS; 2023-02-05)
PROC: B544ZZA Ultrasonography of Left Jugular Veins, Guidance (ICD-10-PCS; 2023-02-05)
PROC: 30233N1 Transfusion of Nonautologous Red Blood Cells into Peripheral Vein, Percutaneous Approach (ICD-10-PCS; 2023-02-06)
PROC: 30233L1 Transfusion of Nonautologous Fresh Plasma into Peripheral Vein, Percutaneous Approach (ICD-10-PCS; 2023-02-06)
PROC: 30233K1 Transfusion of Nonautologous Frozen Plasma into Peripheral Vein, Percutaneous Approach (ICD-10-PCS; 2023-02-06)
PROC: 30233R1 Transfusion of Nonautologous Platelets into Peripheral Vein, Percutaneous Approach (ICD-10-PCS; 2023-02-06)
PROC: 30233M1 Transfusion of Nonautologous Plasma Cryoprecipitate into Peripheral Vein, Percutaneous Approach (ICD-10-PCS; 2023-02-06)
DX: T84.030A Mechanical loosening of internal right hip prosthetic joint, initial encounter (principal); J96.90 Respiratory failure, unspecified, unspecified whether with hypoxia or hypercapnia; K72.00 Acute and subacute hepatic failure without coma; N17.9 Acute kidney failure, unspecified; D68.61 Antiphospholipid syndrome; T79.A11A Traumatic compartment syndrome of right upper extremity, initial encounter; R57.9 Shock, unspecified; I82.621 Acute embolism and thrombosis of deep veins of right upper extremity; M62.82 Rhabdomyolysis; D62 Acute posthemorrhagic anemia; Z68.41 Body mass index [BMI] 40.0-44.9, adult; T81.89XA Other complications of procedures, not elsewhere classified, initial encounter; Y83.9 Surgical procedure, unspecified as the cause of abnormal reaction of the patient, or of later complication, without mention of misadventure at the time of the procedure; D69.6 Thrombocytopenia, unspecified; R74.01 Elevation of levels of liver transaminase levels; E83.39 Other disorders of phosphorus metabolism; E83.51 Hypocalcemia; E88.09 Other disorders of plasma-protein metabolism, not elsewhere classified; E66.9 Obesity, unspecified
CPT/HCPCS: 0241U-QW; 31500; 36415; 36430; 36511; 36600; 71045-TC-FY; 73502-TC-RT-FY; 76000-TC-FY; 80048; 80053; 80076; 82550; 82553; 82803; 82962; 83010; 83605; 83615; 83735; 84100; 85025; 85027; 85045; 85362; 85379; 85384; 85597; 85610; 85730; 86146; 86147; 86769; 86803; 86850; 86870; 86900; 86901; 86902; 86922; 86965; 87040; 87340; 87635; 93005; 93010; 93971; 93971-TC; 94002; C1713; C1757; C1760; C1768; C1769; C1776; C1889; J1644; J3490; J7517; P9012; P9017; P9034; P9038; P9058